=== PATIENT | male | born 1965 | race Caucasian/White ===

== ENCOUNTER → 2016-06-02 | Outpatient (CLI) | payer OTHER | LOC: RAD 08:17 | DX: M54.2 Cervicalgia (principal); S46.812A Strain of other muscles, fascia and tendons at shoulder and upper arm level, left arm, initial encounter ==

== ENCOUNTER → 2016-08-03 | Outpatient (CLI) | payer OTHER ==
[~2016-08-03] VITALS: Ht 182.9 cm; Wt 89.1 kg
[2016-08-03 10:17] VITALS: BP 157/105
== END ==
LOC: AMSURD 09:58
DX: I51.89 Other ill-defined heart diseases (principal); Z00.00 Encounter for general adult medical examination without abnormal findings; K21.9 Gastro-esophageal reflux disease without esophagitis; R05 Cough; Z12.5 Encounter for screening for malignant neoplasm of prostate

== ENCOUNTER → 2016-08-05 | Outpatient (CLI) | payer OTHER ==
[2016-08-03 10:17] VITALS: BP 157/105
== END ==
LOC: CARDREHAB 12:48
DX: I51.89 Other ill-defined heart diseases (principal)

== ENCOUNTER → 2017-12-26 | Outpatient (CLI) | payer OTHER ==
[~2017-12-26] VITALS: Ht 182.9 cm; Wt 92.7 kg
[2017-12-26 15:00] VITALS: BP 136/88
[2017-12-26 16:00] LABS: ALBUMIN 4.4 g/dL (3.5-5.0); CALCIUM 8.9 mg/dL (8.4-10.2); POTASSIUM 3.9 mmol/L (3.6-5.0); TOTAL BILIRUBIN 1.4 mg/dL (0.2-1.3); TOTAL PROTEIN 7.9 g/dL (6.3-8.2)
[2017-12-26 16:11] LABS: HEMATOCRIT 45.7 % (42.0-52.0); HEMOGLOBIN 16.3 g/dL (13.5-18.0); MEAN CELL VOLUME 83 fl (78-100); MEAN CORPUSCULAR HEMOGLOBIN 30 pg (27-31); MEAN CORPUSCULAR HGB CONC 36 g/dL (33-37); MEAN PLATELET VOLUME 8.9 fl (7.4-10.4); PLATELET COUNT 139 K/mm3 (130-400); RED BLOOD COUNT 5.53 M/mm3 (4.20-5.60); RED CELL DISTRIBUTION WIDTH 12.7 % (11.5-14.5); WHITE BLOOD COUNT 10.2 K/mm3 (4.8-10.8)
[2017-12-26 17:12] LABS: URINE APPEARANCE CLEAR; URINE BILIRUBIN NEGATIVE (NEGATIVE); URINE BLOOD NEGATIVE (NEGATIVE); URINE COLOR YELLOW; URINE GLUCOSE NEGATIVE (NEGATIVE); URINE KETONE 1+ (NEGATIVE); URINE LEUKOCYTE ESTERASE NEGATIVE (NEGATIVE); URINE NITRATE NEGATIVE (NEGATIVE); URINE PROTEIN(semi-quant) TRACE mg/dL (NEGATIVE); URINE UROBILINOGEN NORMAL (NORMAL)
[2017-12-26 17:13] LABS: BAND 3 % (0-10); LYMPHOCYTE 4 % (20-51); MONOCYTE 4 % (3-10); NEUTROPHILS 89 % (42-75)
[2017-12-26 17:56] VITALS: BP 148/88
== END ==
LOC: AMSURD 14:49
PROVIDERS: Nurse Practitioner
DX: J12.9 Viral pneumonia, unspecified (principal); R52 Pain, unspecified
CPT/HCPCS: A4216; J0696; J1885; J2405; J7030

== ENCOUNTER 2018-01-30 16:57 | Emergency (ER) | payer OTHER ==
[~2018-01-30] VITALS: Ht 182.9 cm; Wt 90.5 kg
[2018-01-30 18:44] VITALS: BP 132/87
== END 2018-01-30 19:20 | disposition home or self-care (01) ==
LOC: ED 16:57
DX: J06.9 Acute upper respiratory infection, unspecified (principal); S22.32XA Fracture of one rib, left side, initial encounter for closed fracture; M54.2 Cervicalgia; Z88.7 Allergy status to serum and vaccine; V86.99XA Unspecified occupant of other special all-terrain or other off-road motor vehicle injured in nontraffic accident, initial encounter

== ENCOUNTER → 2018-02-01 | Outpatient (CLI) | payer OTHER ==
[2018-01-30 18:44] VITALS: BP 132/87
== END ==
LOC: RAD 11:01
DX: R05 Cough (principal)

== ENCOUNTER → 2018-12-25 | Outpatient (CLI) | payer OTHER ==
[2018-12-25 06:57] LABS: EOS # 0.2 (0.04-0.40); EOS % 4.3 % (0.0-4.0); HEMATOCRIT 45.3 % (42.0-52.0); HEMOGLOBIN 15.9 g/dL (13.5-18.0); LYMPH# 1.3 (1.50-4.00); MEAN CELL VOLUME 85 fl (78-100); MEAN CORPUSCULAR HEMOGLOBIN 30 pg (27-31); MEAN CORPUSCULAR HGB CONC 35 g/dL (33-37); MEAN PLATELET VOLUME 8.6 fl (7.4-10.4); MONO # 0.5 (0.20-0.80); NEU # 3.2 (1.40-6.50); PLATELET COUNT 166 K/mm3 (130-400); RED BLOOD COUNT 5.34 M/mm3 (4.20-5.60); RED CELL DISTRIBUTION WIDTH 13.2 % (11.5-14.5); WHITE BLOOD COUNT 5.3 K/mm3 (4.8-10.8)
[2018-12-25 07:26] LABS: POTASSIUM 4.5 mmol/L (3.5-5.1)
[2018-12-25 07:29] LABS: TOTAL PROTEIN 6.8 g/dL (6.4-8.3)
[2018-12-25 07:31] LABS: TOTAL BILIRUBIN 1.1 mg/dL (0.2-1.2)
[2018-12-25 07:41] LABS: URINE APPEARANCE CLEAR; URINE BILIRUBIN NEGATIVE (NEGATIVE); URINE BLOOD NEGATIVE (NEGATIVE); URINE COLOR YELLOW; URINE GLUCOSE NEGATIVE (NEGATIVE); URINE KETONE NEGATIVE (NEGATIVE); URINE LEUKOCYTE ESTERASE NEGATIVE (NEGATIVE); URINE MUCUS PRESENT (NOT PRESENT); URINE NITRATE NEGATIVE (NEGATIVE); URINE PROTEIN(semi-quant) TRACE mg/dL (NEGATIVE); URINE UROBILINOGEN NORMAL (NORMAL); URINE WBC 0-1 /hpf (0-3)
== END ==
LOC: LAB 06:39
PROVIDERS: Physician Assistant
DX: Z12.5 Encounter for screening for malignant neoplasm of prostate (principal); Z13.220 Encounter for screening for lipoid disorders; Z76.89 Persons encountering health services in other specified circumstances; R10.9 Unspecified abdominal pain; Z91.89 Other specified personal risk factors, not elsewhere classified

== ENCOUNTER → 2019-08-28 | Outpatient (CLI) | payer OTHER | LOC: RAD 08:54 | DX: M19.011 Primary osteoarthritis, right shoulder (principal); T07.XXXA Unspecified multiple injuries, initial encounter ==

== ENCOUNTER → 2020-12-04 | Outpatient (CLI) | payer OTHER | LOC: RAD 11:33 | DX: R05.1 Acute cough (principal) ==

== ENCOUNTER → 2023-04-18 | Day surgery (SDC) | payer OTHER | END | disposition home or self-care (01) | LOC: MSO 07:50 | DX: Z12.11 Encounter for screening for malignant neoplasm of colon (principal) | CPT/HCPCS: 00812; J2704; J7120 ==

== ENCOUNTER → 2023-04-20 | Outpatient (CLI) | payer OTHER | LOC: RAD 07:00 | DX: Z91.89 Other specified personal risk factors, not elsewhere classified (principal) ==